=== PATIENT | male | born 1960 | race Caucasian/White ===

== ENCOUNTER 2017-12-22 13:25 | Emergency (ER) | payer OTHER ==
[~2017-12-22 13:25] MED LIST: LORT5TAB PO
[2017-12-22 13:26] VITALS: BP 134/94; PULSE 90; RESP 14; TEMP 98.7; O2SAT 97
[2017-12-22] MEDS ORDERED: SODIUM CHLOR 0.9% 1000 ML INJ 1,000 ML IV ONE ×2 (14:00→16:15)
[2017-12-22] MEDS ORDERED: ONDANSETRON HCL 4 MG/2 ML VIAL IV PUSH ONE (14:00)
[2017-12-22] MEDS ORDERED: MORPHINE SULFATE 2 MG/ML INJ IV PUSH ONE (14:00)
--- NOTE | 2017-12-22 14:24 | PD ---
HPI . Back pain Chief Complaint: Back/ Neck Pain or Injury Time Seen by Provider: 13:45 Travel History International Travel<30 days: No Contact w/Intl Traveler<30days: No Traveled to known affect area: No History of Present Illness HPI Patient presents with a chief complaint of low back pain. Onset today. He describes a constant pain which she rates 8/10. He has not noted any modifying factors. He denies any urinary tract symptoms such as dysuria, frequency or urgency. He denies any concerning neurological complaints such as bowel or bladder incontinence, retention, perineal anesthesia. He has had a fever associated with the flu but the fever has stopped. The patient reports that he has had the flu. He said poor by mouth intake and states that his mouth feels very dry. Concerned that he is dehydrated. He states that his respiratory symptoms have resolved. However, he continues to have poor appetite. PFSH Past Medical History Medical History: Denies Significant Hx Cardiovascular Problems: No Gastrointestinal Disorders: No Genitourinary: No Neurologic: No Respiratory: No ?: Not Past Surgical History Surgical History: No Previous Surgery Other Surgery: Yes (tumor removed from eye when he was 4.) Social History Alcohol Use: No Tobacco Use: No Substance Use: No Allergies-Medications (Allergen,Severity, Reaction): Coded Allergies: No Known Allergies (Unverified , 11/01/11) Reported Meds & Prescriptions Reported Meds & Active Scripts Active Lortab 5/500 (Acetaminophen/Hydrocodone Bitart) 5 Mg/500 Mg Tab 1 Tab PO Q4HPRN FOR PAIN Review of Systems Except as stated in HPI: all other systems reviewed are Neg General / Constitutional: Positive: Fever, Chills HENT: Positive: Congestion Respiratory: Positive: Cough Gastrointestinal: Positive: Loss of Appetite Genitourinary: No: Urgency, Frequency, Dysuria Musculoskeletal: Positive: Myalgias Physical Exam Narrative GENERAL: Awake and alert. SKIN: warm/dry. Good color and turgor. HEAD: Normocephalic. Atraumatic. EYES: Pupils equal and round. No scleral icterus. No injection or drainage. ENT: No nasal bleeding or discharge. Mucous membranes are slightly dry. NECK: Trachea midline. Full range of motion without pain.. No cervical lymphadenopathy. CARDIOVASCULAR: Regular rate and rhythm. Heart sounds are normal. RESPIRATORY: No accessory muscle use. Clear to auscultation. Breath sounds equal bilaterally. GASTROINTESTINAL: Abdomen soft. Nontender. Bowel sounds present. Nondistended. : No CVA tenderness. MUSCULOSKELETAL: No obvious deformities. Diffuse low back tenderness. NEUROLOGICAL: Awake and alert. No obvious cranial nerve deficits. Motor grossly within normal limits. Normal speech. PSYCHIATRIC: Appropriate mood and affect; insight and judgment normal. Data Data Last Documented VS Vital Signs Date Time Temp Pulse Resp B/P (MAP) Pulse Ox O2 Delivery O2 Flow Rate FiO2 12/22/17 14:16 80 18 12/22/17 13:26 98.7 134/94 (107) 97 Orders Orders Sodium Chlor 0.9% 1000 Ml Inj (Ns 1000 M (12/22/17 14:00) Morphine Inj (Morphine Inj) (12/22/17 14:00) Ondansetron Inj (Zofran Inj) (12/22/17 14:00) Urinalysis - C+S If Indicated (12/22/17 14:00) Labs Laboratory Tests Test 12/22/17 15:00 Urine Color DARK-YELLOW Urine Turbidity CLEAR Urine pH 6.0 Urine Specific [place] 1.030 Urine Protein 30 mg/dL Urine Glucose (UA) NEG mg/dL Urine Ketones 10 mg/dL Urine Occult Blood NEG Urine Nitrite NEG Urine Bilirubin NEG Urine Urobilinogen 2.0 MG/DL Urine Leukocyte Esterase NEG Urine WBC 4 /hpf Urine Hyaline Casts 3 /lpf Urine White Blood Cell Casts 4 /lpf Urine Mucus MOD /lpf Microscopic Urinalysis Comment CULT NOT INDICATED MDM Medical Decision Making Medical Screen Exam Complete: Yes Emergency Medical Condition: Yes Differential Diagnosis Differential diagnosis includes but is not limited to muscular low back pain, DDD, spinal stenosis, epidural abscess, sciatica, kidney infection or stone. Narrative Course Patient presents complaining with low back pain. He is also complaining of probable dehydration. He states that he has had the flu and has an extremely poor appetite. He states that his mouth feels dry. He will be treated with a liter of fluid. I will check a urine. UA>>SG 1.030, + ketones. He will be discharged with instructions to increase his fluid intake. This patient's back pain is likely musculoskeletal. He will be discharged home with prescriptions for Ultram and Flexeril. Diagnosis Primary Impression: Back pain Qualified Codes: M54.5 - Low back pain Additional Impression: Dehydration Additional Instructions: Drink lots of fluids for the next few days. Med/Other Pt SpecificInfo: Prescription(s) given Scripts Cyclobenzaprine (Flexeril) 10 Mg Tab 10 MG PO TID for Muscle Spasm, #30 TAB 0 Refills Prov: Marcia Sanders MD 12/22/17 Tramadol (Ultram) 50 Mg Tab 50 MG PO Q4H Y for PAIN, #12 TAB 0 Refills Prov: Marcia Sanders MD 12/22/17 Disposition: 01 DISCHARGE HOME Condition: Stable Marcia Sanders MD Dec 22, 2017 14:24
[2017-12-22 16:00] LABS: BLOOD, URINE NEG (NEG); GLUCOSE,URINE NEG (NEG); HYALINE CAST, URINE 3 /lpf (RARE); KETONE, URINE 10 mg/dL (NEG); MUCUS URINE MOD /lpf (OCC); NITRITE,URINE NEG (NEG); URINE COLOR DARK-YELLOW (YELLW/STRAW); URINE LEUKOCYTE ESTERASE NEG (NEG); WHITE BLOOD CELL CAST, URINE 4 /lpf
[2017-12-22 16:01] LABS: BILIRUBIN, URINE NEG (NEG)
[2017-12-22 16:12] VITALS: BP 137/78; PULSE 68; RESP 19; O2SAT 96
[2017-12-22] MEDS ORDERED: TRAM50 PO (16:12)
[2017-12-22] MEDS ORDERED: CYCL10TA PO (16:12)
[2017-12-22 16:15] VITALS: RESP 19
== END 2017-12-22 17:45 | disposition home or self-care (01) ==
LOC: NEPD 13:25
DX: M54.5 Low back pain (principal); E86.0 Dehydration
CPT/HCPCS: 81001; 96361; 96374; 96375; 99284; J2270; J2405; J7030